=== PATIENT | male | born 1980 | race African-American/Black ===

== ENCOUNTER → 2020-06-13 | Outpatient (CLI) | payer MEDICAID ==
[~2020-06-13] MED LIST: OMNIPAQUE 350 MG/ML, 100ML BOTTLE ONE
== END | disposition home or self-care (01) ==
LOC: CFH 14:33
PROVIDERS: ATTEND Family Medicine
DX: R10.30 Lower abdominal pain, unspecified (principal)
CPT/HCPCS: 74177; Q9967

== ENCOUNTER → 2020-09-19 | Outpatient (CLI) | payer MEDICAID ==
[~2020-09-19] MED LIST changes: -OMNIPAQUE 350 MG/ML, 100ML BOTTLE ONE; +REGADENOSON 0.4 MG/5 ML SYRINGE ONE
== END | disposition home or self-care (01) ==
LOC: CFH 07:03
PROVIDERS: ATTEND Internal Medicine Cardiovascular Disease
DX: R94.31 Abnormal electrocardiogram [ECG] [EKG] (principal); R07.89 Other chest pain; R42 Dizziness and giddiness
CPT/HCPCS: 78452; 93017; 93306; 93356; A9502; J2785